=== PATIENT | male | born 1945 | race African-American/Black ===

== ENCOUNTER 2024-05-03 11:08 | Inpatient (IN) | payer MEDICARE ==
[~2024-05-03] VITALS: Ht 172.7 cm; Wt 50.5 kg
[2024-05-03 12:26] LABS: BASOPHILS % 0.8 % (0.0-2.0); EOSINOPHILS % 2.8 % (0.0-5.0); HEMATOCRIT. 34.8 % (42.0-52.0); HEMOGLOBIN. 11.4 g/dL (14.0-18.0); LYMPHOCYTES % 19.4 % (20.0-50.0); MEAN CORPUSCULAR HEMOGLOBIN 28.8 pg (28.0-32.0); MEAN CORPUSCULAR HGB CONC 32.7 g/dL (31.0-37.0); MEAN CORPUSCULAR VOLUME 88.1 fL (80.0-94.0); MEAN PLATELET VOLUME 8.2 fl (7.4-10.4); MONOCYTES % 6.3 % (2.0-8.0); NEUTROPHILS % 70.7 % (40.0-76.0); PLATELET 395 x1000/uL (130-400); RED BLOOD CELL COUNT 3.95 mill/uL (4.7-6.1); RED CELL DISTRIBUTION WIDTH 15.6 % (11.6-14.6); WHITE BLOOD COUNT 5.6 x1000/uL (4.5-11.0)
[2024-05-03 12:32] LABS: POTASSIUM 4.9 mEq/L (3.5-5.1)
[2024-05-03 12:33] LABS: CALCIUM 9.5 mg/dL (8.7-10.4)
[2024-05-03 12:38] LABS: CREATININE 1.5 mg/dL (0.6-1.3)
[2024-05-03] MEDS: LEVOFLOXACIN 500MG PREMIX 100 ML IV ONE (13:15)
[2024-05-03 13:57] LABS: TROPONIN I HIGH SENSITIVITY 4 ng/L (3.0-53)
[2024-05-03] MEDS ORDERED: PANT40SU GT (17:55)
[2024-05-03] MEDS ORDERED: PANT40TA51 (17:55)
[2024-05-03] MEDS ORDERED: APIX5TAB PO (17:55)
[2024-05-03] MEDS ORDERED: CARV6.2548 PO (17:55)
[2024-05-03] MEDS ORDERED: IPRATROPIUM/ALBUTEROL 0.5-3(2.5)MG/3ML NEB HHN PRN (18:00)
[2024-05-03] MEDS ORDERED: NA PHOS,M-B/NA PHOS,DI-BA ENEMA 118ML PR PRN (18:00)
[2024-05-03] MEDS ORDERED: PANTOPRAZOLE 40MG DR TABLET PO SCH (18:00)
[2024-05-03] MEDS ORDERED: DOCUSATE SODIUM 100MG CAPSULE PO PRN (18:00)
[2024-05-03] MEDS ORDERED: ACETAMINOPHEN 325MG TABLET PO PRN (18:00)
[2024-05-03] MEDS: TAMSULOSIN HCL 0.4MG SR CAPSULE PO SCH (18:15)
[2024-05-03] MEDS ORDERED: CEFEPIME 2GM IN DEXT 5% 100ML IV SCH (18:15)
[2024-05-03] MEDS ORDERED: CEFEPIME 2GM/100ML 100 ML IV SCH (20:00)
[2024-05-03 22:00] VITALS: BP 157/85; PULSE 75; RESP 20; TEMP 37.4188
[2024-05-03] MEDS ORDERED: METRONIDAZOLE 500MG TABLET PO SCH (22:00)
[2024-05-03] MEDS: VANCOMYCIN 1.25GM PMX (XELLIA) 250 ML IV NR (22:41)
[2024-05-03] MEDS: APIXABAN 5 MG TABLET PO SCH (23:11)
[2024-05-03] MEDS: ATORVASTATIN CALCIUM 40MG TABLET PO SCH (23:12)
[2024-05-03] MEDS: CARVEDILOL 6.25 MG TABLET PO SCH (23:12)
[2024-05-03] MEDS: DOXYCYCLINE HYCLATE 100MG CAPSULE PO SCH (23:13)
[2024-05-03] MEDS: PIPERACILLIN/TAZO 3.375G/50ML 50 ML IV SCH (23:31)
[2024-05-04] VITALS (11 sets, daily range): BP systolic 91–109; BP diastolic 45–67; PULSE 80–98; RESP 17–20; TEMP 36.16956–37.05852; O2SAT 93–98
[2024-05-04] MEDS: IPRATROPIUM/ALBUTEROL 0.5-3(2.5)MG/3ML NEB HHN SCH (00:29)
[2024-05-04 07:14] LABS: POTASSIUM 4.9 mEq/L (3.5-5.1)
[2024-05-04 07:15] LABS: CALCIUM 8.5 mg/dL (8.7-10.4)
[2024-05-04 07:17] LABS: BASOPHILS % 0.2 % (0.0-2.0); EOSINOPHILS % 0.3 % (0.0-5.0); HEMATOCRIT. 27.2 % (42.0-52.0); HEMOGLOBIN. 9.1 g/dL (14.0-18.0); LYMPHOCYTES % 15.6 % (20.0-50.0); MEAN CORPUSCULAR HEMOGLOBIN 29.4 pg (28.0-32.0); MEAN CORPUSCULAR HGB CONC 33.4 g/dL (31.0-37.0); MEAN CORPUSCULAR VOLUME 87.9 fL (80.0-94.0); MEAN PLATELET VOLUME 8.6 fl (7.4-10.4); MONOCYTES % 5.8 % (2.0-8.0); NEUTROPHILS % 78.1 % (40.0-76.0); PLATELET 361 x1000/uL (130-400); RED CELL DISTRIBUTION WIDTH 15.7 % (11.6-14.6); WHITE BLOOD COUNT 9.2 x1000/uL (4.5-11.0)
[2024-05-04 07:20] LABS: CREATININE 1.6 mg/dL (0.6-1.3)
[2024-05-04 07:23] LABS: VITAMIN B12 SERUM 1022 pg/mL (211-911)
[2024-05-04 07:25] LABS: THYROID STIMULATING HORMONE 1.51 uIU/mL (0.55-4.78)
[2024-05-04] MEDS ORDERED: VANCOMYCIN 500MG PREMIX 100 ML IV SCH (09:00)
[2024-05-04] MEDS: FOLIC ACID/VITAMIN B COMP W-C TABLET GT SCH (09:42)
[2024-05-04] MEDS: PANTOPRAZOLE 40MG DR TABLET PO SCH (09:42)
[2024-05-04] MEDS ORDERED: IOHEXOL-350 100 ML BOTTLE ONE (12:08)
[2024-05-04] MEDS ORDERED: DEXTROSE 50% WATER 50ML SYRINGE IV PRN (16:15)
[2024-05-04] MEDS: BLOOD SUGAR DIAGNOSTIC STRIP TEST SCH (17:41)
[2024-05-04] MEDS: INSULIN LISPRO 100 UNITS/ML SUBCUT SCH (18:05)
[2024-05-04] MEDS: VANCOMYCIN 750MG PREMIX 150 ML IV SCH (21:12)
[2024-05-05] VITALS (11 sets, daily range): BP systolic 99–110; BP diastolic 49–71; PULSE 73–86; RESP 18–20; TEMP 36.44736–37.44744; O2SAT 96–100
[2024-05-05 06:41] LABS: BASOPHILS % 0.3 % (0.0-2.0); EOSINOPHILS % 1.1 % (0.0-5.0); HEMATOCRIT. 25.3 % (42.0-52.0); HEMOGLOBIN. 8.3 g/dL (14.0-18.0); LYMPHOCYTES % 14.9 % (20.0-50.0); MEAN CORPUSCULAR HEMOGLOBIN 28.7 pg (28.0-32.0); MEAN CORPUSCULAR HGB CONC 32.8 g/dL (31.0-37.0); MEAN CORPUSCULAR VOLUME 87.5 fL (80.0-94.0); MEAN PLATELET VOLUME 8.6 fl (7.4-10.4); MONOCYTES % 9.2 % (2.0-8.0); NEUTROPHILS % 74.5 % (40.0-76.0); PLATELET 335 x1000/uL (130-400); RED BLOOD CELL COUNT 2.89 mill/uL (4.7-6.1); RED CELL DISTRIBUTION WIDTH 15.6 % (11.6-14.6)
[2024-05-05 06:49] LABS: POTASSIUM 4.4 mEq/L (3.5-5.1)
[2024-05-05 06:51] LABS: CALCIUM 8.4 mg/dL (8.7-10.4)
[2024-05-05 06:57] LABS: CREATININE 2.1 mg/dL (0.6-1.3)
[2024-05-05] MEDS: VANCOMYCIN 750MG PREMIX 150 ML IV NR (20:50)
[2024-05-06] VITALS (7 sets, daily range): BP systolic 108–132; BP diastolic 57–63; PULSE 74–78; RESP 16–20; TEMP 36.16956–36.61404; O2SAT 90–100
[2024-05-06 07:04] LABS: POTASSIUM 4.5 mEq/L (3.5-5.1)
[2024-05-06 07:06] LABS: CALCIUM 8.7 mg/dL (8.7-10.4)
[2024-05-06 07:09] LABS: CREATININE 1.8 mg/dL (0.6-1.3)
[2024-05-06 09:21] LABS: BASOPHILS % 0.4 % (0.0-2.0); EOSINOPHILS % 2.8 % (0.0-5.0); HEMATOCRIT. 26.3 % (42.0-52.0); HEMOGLOBIN. 8.6 g/dL (14.0-18.0); MEAN CORPUSCULAR HEMOGLOBIN 28.7 pg (28.0-32.0); MEAN CORPUSCULAR HGB CONC 32.8 g/dL (31.0-37.0); MEAN CORPUSCULAR VOLUME 87.7 fL (80.0-94.0); MEAN PLATELET VOLUME 8.3 fl (7.4-10.4); MONOCYTES % 6.7 % (2.0-8.0); NEUTROPHILS % 74.1 % (40.0-76.0); PLATELET 356 x1000/uL (130-400); RED BLOOD CELL COUNT 2.99 mill/uL (4.7-6.1); RED CELL DISTRIBUTION WIDTH 15.7 % (11.6-14.6); WHITE BLOOD COUNT 6.8 x1000/uL (4.5-11.0)
[2024-05-06] MEDS: VANCOMYCIN 750MG/150ML (BAXTER) IV SCH (21:49)
[2024-05-07] VITALS (7 sets, daily range): BP systolic 107–122; BP diastolic 59–76; PULSE 57–87; RESP 16–20; TEMP 36.33624–37.00296; O2SAT 96–100
[2024-05-07] MEDS ORDERED: DEXTROSE 50% WATER 50ML SYRINGE IV PRN (19:15)
[2024-05-07] MEDS ORDERED: BLOOD SUGAR DIAGNOSTIC STRIP TEST SCH (21:00)
[2024-05-07] MEDS ORDERED: INSULIN LISPRO 100 UNITS/ML SUBCUT SCH (21:00)
[2024-05-07] MEDS: INSULIN GLARGINE 100 UNITS/ML SUBCUT SCH (22:31)
[2024-05-08] VITALS (8 sets, daily range): BP systolic 111–142; BP diastolic 56–87; PULSE 52–91; RESP 16–20; TEMP 35.39172–36.6696; O2SAT 95–100
[2024-05-08 09:16] LABS: HEMATOCRIT 28.2 % (42.0-52.0); HEMOGLOBIN 9.2 g/dL (14.0-18.0); MEAN CORPUSCULAR HEMOGLOBIN 28.6 pg (28.0-32.0); MEAN CORPUSCULAR HGB CONC 32.7 g/dL (31.0-37.0); MEAN CORPUSCULAR VOLUME 87.3 fL (80.0-94.0); PLATELET 421 x1000/uL (130-400); RED BLOOD CELL COUNT 3.23 mill/uL (4.7-6.1); RED CELL DISTRIBUTION WIDTH 15.3 % (11.6-14.6); WHITE BLOOD COUNT 6.7 x1000/uL (4.5-11.0)
[2024-05-08 09:21] LABS: POTASSIUM 4.8 mEq/L (3.5-5.1)
[2024-05-08 09:22] LABS: CALCIUM 9.2 mg/dL (8.7-10.4)
[2024-05-08 09:28] LABS: CREATININE 1.4 mg/dL (0.6-1.3)
[2024-05-08] MEDS ORDERED: TAMS-11 PO (14:29)
[2024-05-08] MEDS ORDERED: DOXY100C5 PO (14:29)
[2024-05-08] MEDS ORDERED: IPRA3AMP9 HHN (14:29)
[2024-05-08] MEDS ORDERED: FOLI0.8T53 GT (14:29)
[2024-05-08] MEDS ORDERED: LIP40 PO (14:29)
[2024-05-08] MEDS ORDERED: PIPE3.3772 IV (14:29)
[2024-05-08] MEDS ORDERED: LANTUSUD SUBCUT (14:29)
[2024-05-09] VITALS: BP 104/61; PULSE 68; RESP 20; TEMP 36.83628; O2SAT 97
[2024-05-09 04:00] VITALS: BP 114/67; PULSE 79; RESP 19; TEMP 36.05844; O2SAT 99
[2024-05-09 04:36] VITALS: BP 114/67; PULSE 79; RESP 19; TEMP 36.05844; O2SAT 99
[2024-05-09 08:01] VITALS: BP 126/71; PULSE 78; RESP 20; TEMP 36.55848; O2SAT 98
[2024-05-09 12:24] VITALS: BP 93/60; PULSE 77; RESP 19; TEMP 36.3918; TEMP 36.39180; O2SAT 100
[2024-05-09 14:00] VITALS: BP 103/60; PULSE 77; TEMP 97.5; O2SAT 100
[2024-05-10] MEDS ORDERED: FAMOTIDINE 20MG TABLET PO SCH (09:00)
== END 2024-05-09 14:50 | DRG 871 ==
LOC: ER 11:08 → 5WST 13:08 → EDBEDREQ 13:10 → EDBEDREQTM 13:10 → 7WST 21:08
PROVIDERS: ADMIT Internal Medicine Pulmonary Disease; ATTEND Internal Medicine Pulmonary Disease
DX: A41.9 Sepsis, unspecified organism (principal); E43 Unspecified severe protein-calorie malnutrition; J69.0 Pneumonitis due to inhalation of food and vomit; G93.41 Metabolic encephalopathy; N17.9 Acute kidney failure, unspecified; G96.00 Cerebrospinal fluid leak, unspecified; Z68.1 Body mass index [BMI] 19.9 or less, adult; E11.22 Type 2 diabetes mellitus with diabetic chronic kidney disease; E78.5 Hyperlipidemia, unspecified; I48.91 Unspecified atrial fibrillation; Z20.822 Contact with and (suspected) exposure to COVID-19; N18.9 Chronic kidney disease, unspecified; N40.0 Benign prostatic hyperplasia without lower urinary tract symptoms; M85.88 Other specified disorders of bone density and structure, other site; J44.9 Chronic obstructive pulmonary disease, unspecified; I50.9 Heart failure, unspecified; I69.320 Aphasia following cerebral infarction; Z93.1 Gastrostomy status; Z86.711 Personal history of pulmonary embolism; Z79.01 Long term (current) use of anticoagulants; Z86.718 Personal history of other venous thrombosis and embolism; Z87.891 Personal history of nicotine dependence; Z88.1 Allergy status to other antibiotic agents
CPT/HCPCS: 36415; 71045; 71275; 74230; 80048; 80202; 82607; 82962; 83036; 83880; 84145; 84443; 84484; 85025; 85027; 87426; 87804; 92610; 92611; 93005; 93880; 94640; 95816; 97162; 99285; C1893; J0692; J1815; J1956; J2543; J3370; Q9967